=== PATIENT | female | born 1965 | race Caucasian/White ===

== ENCOUNTER 2023-09-22 13:09 | Outpatient (OUT) | payer BC, SELFPAY ==
--- NOTE | 2023-09-22 | XR_ITS ---
The [address] [address] Patient Name: JOSSIE CASTRO MRN: [id number] date: 1965 Sex: F Assigned Patient Location: Current Patient Location: Accession/Order Number: [id number] Exam Date: 09/22/2023 13:25 Report Date: 09/23/2023 06:01 At the request of: TAMMY EVANS Procedure: XR foot RT min 3V PROCEDURE: XR foot RT min 3V, XR ankle RT min 3V HISTORY: RIGHT FOOT PAIN [; chronic right foot and ankle pain COMPARISON: None. FINDINGS: BONES:No fracture, acute abnormality, or significant arthropathy. Mild degenerative enthesopathic spurring of the calcaneus. SOFT TISSUES:No visible soft tissue swelling. EFFUSION:None visible. OTHER: Negative. XR/XR foot RT min 3V IMPRESSION: 1. No acute bone abnormality or significant degenerative joint disease of the right ankle and foot. 2. Small calcaneal plantar spur and small degenerative enthesophyte at Achilles tendon insertion into the calcaneus. Electronically authenticated by: VICKEY DARNELL Date: 09/23/2023 06:01
--- NOTE | 2023-09-22 | XR_ITS ---
The [address] [address] Patient Name: JOSSIE CASTRO MRN: [id number] date: 1965 Sex: F Assigned Patient Location: Current Patient Location: Accession/Order Number: [id number] Exam Date: 09/22/2023 13:25 Report Date: 09/23/2023 06:01 At the request of: TAMMY EVANS Procedure: XR ankle RT min 3V PROCEDURE: XR foot RT min 3V, XR ankle RT min 3V HISTORY: RIGHT FOOT PAIN [; chronic right foot and ankle pain COMPARISON: None. FINDINGS: BONES:No fracture, acute abnormality, or significant arthropathy. Mild degenerative enthesopathic spurring of the calcaneus. SOFT TISSUES:No visible soft tissue swelling. EFFUSION:None visible. OTHER: Negative. XR/XR ankle RT min 3V IMPRESSION: 1. No acute bone abnormality or significant degenerative joint disease of the right ankle and foot. 2. Small calcaneal plantar spur and small degenerative enthesophyte at Achilles tendon insertion into the calcaneus. Electronically authenticated by: VICKEY DARNELL Date: 09/23/2023 06:01
== END 2023-09-22 13:10 | disposition home or self-care (01) ==
PROVIDERS: Visit Provider Podiatrist Foot & Ankle Surgery
DX: M25.571 Pain in right ankle and joints of right foot (principal); M77.31 Calcaneal spur, right foot
CPT/HCPCS: 73610; 73630